=== PATIENT | female | born 1960 | race Caucasian/White ===

== ENCOUNTER → 2020-11-25 | Outpatient (CLI) | payer OTHER ==
[2015-04-08 10:10] VITALS: BP 155/83
[~2020-11-25] MED LIST: ALPR1TAB PO; LEXAPRO20 MG PO; METH54TA5 PO; OXYB10TA7 PO
--- NOTE | 2020-11-25 11:47 | KCIC ---
MRI STUDY OF THE LEFT KNEE WITHOUT CONTRAST Clinical indications: Left knee pain. Instability. Patient felt a pop in knee were while climbing [place] over 2 weeks ago. TECHNIQUE: Noncontrast MRI sequences of the left knee was performed in all 3 planes. COMPARISON: None available. FINDINGS: The anterior and posterior cruciate ligaments are intact. The quadriceps and patellar tendo ns are intact. There is prepatellar soft tissue edema present. No articular surface tear of the media l or lateral meniscus is seen. There is mild chondromalacia of the lateral and medial tibiofemoral niesha int compartments without significant articular cartilage defect. The medial collateral ligament is in tact and no meniscocapsular separation is seen. The iliotibial band and lateral collateral ligament c omplex and popliteus tendon are intact. No posterior lateral corner injury is seen. No fracture or ma rrow infiltrative process is seen. The patella is normally aligned. There is severe chondromalacia pa tellae involving the medial patellar facet and apex of the lateral patellar facet with moderate subch ondral stress reaction bone marrow edema. There is mild trochlear chondromalacia. The medial and late ral retinacular ligaments are intact. No distended Talbert's cyst is seen. Small knee joint effusion is seen. No loose body is evident. No muscle edema is seen. IMPRESSION: No meniscal or ligament or tendon tear. 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 Mild chondromalacia of the medial and lateral tibiofemoral joint compartments. There is minimal degen erative spurring of these joint compartments. Electronically signed by: Andrea Duncan MD (11/25/2020 11:44 AM) [place] [id number]
== END ==
LOC: KCIC MRI 10:06
PROVIDERS: ATTEND Physician Assistant
DX: S86.912A Strain of unspecified muscle(s) and tendon(s) at lower leg level, left leg, initial encounter (principal); X58.XXXA Exposure to other specified factors, initial encounter; Y93.89 Activity, other specified; Y92.89 Other specified places as the place of occurrence of the external cause; Y99.8 Other external cause status
CPT/HCPCS: 73721